=== PATIENT | male | born 1950 | race Caucasian/White ===

== ENCOUNTER → 2019-05-27 13:16 | Outpatient (CLI) | payer MEDICARE, OTHER, SELFPAY ==
[2019-05-27 14:08] LABS: Add Manual Diff / Slide Review NO; Basophils Absolute Auto 100 /uL (0-100); Basophils Percent Auto 1.2 % (0-2); Eosinophils Absolute Auto 200 /uL (0-450); Eosinophils Percent Auto 1.9 % (2-4); Hematocrit 44.3 % (41-53); Hemoglobin 14.8 g/dL (13.5-17.5); Lymphocytes Absolute Auto 2500 /uL (1100-4500); Lymphocytes Percent Auto 26.6 % (25-40); Mean Corpuscular HGB Conc 33.5 % (30-36); Mean Corpuscular Hemoglobin 33.9 PG (26-34); Mean Corpuscular Volume 101.2 fL (80-100); Monocytes Absolute Auto 1100 /uL (0-900); Monocytes Percent Auto 11.6 % (3-14); Neutrophils Absolute Auto 5400 /uL (1500-7000); Neutrophils Percent Auto 58.7 % (50-75); Platelet Count 185 X10^3/uL (150-400); Red Blood Cell Count 4.38 X10^6/uL (4.5-5.9); Red Cell Distribution Width 15.1 % (11.6-14.8); White Blood Cell Count 9.2 X10^3/uL (4.5-11.0)
[2019-05-27 14:31] LABS: Blood Urea Nitrogen 18 mg/dL (9-20); Carbon Dioxide 26 mmol/L (22-32); Chloride 103 mmol/L (98-107); Estimated Glomerular Filt Rate > 60.0 mL/min (>60); Glucose 79 mg/dL (80-110); HEMOLYSIS < 15 (0-50); Potassium 5.1 mmol/L (3.4-5.1); Sodium 140 mmol/L (137-145)
[2019-05-27 14:35] LABS: B Type Natriuretic Peptide 107 (<100)
== END ==
PROVIDERS: PCP Hospitalist; Visit Provider Hospitalist
DX: R06.02 Shortness of breath (principal)
CPT/HCPCS: 36415; 80048; 83880; 85025

== ENCOUNTER → 2019-06-03 13:05 | Outpatient (CLI) | payer MEDICARE, OTHER, SELFPAY ==
--- NOTE | 2019-06-03 13:26 | DI.CT.S_ITS ---
PROCEDURE: CT CHEST W CON INDICATIONS: Pulmonary Nodules ON PRIOR IMAGING FROM [facility] TECHNIQUE: After the administration of intravenous contrast, 5 mm thick sections acquired from the pulmonary apices to the posterior costophrenic angles. 1 mm axial lung, 5 mm thick coronal and sagittal reformats and 7 mm axial MIP were acquired. For radiation dose reduction, the following was used: automated exposure control, adjustment of mA and/or kV according to patient size. COMPARISON: None. FINDINGS: Image quality: Excellent. Lungs and pleura: There is a 6 mm subpleural nodule in the right upper lobe adjacent to the major fissure with associated pleural thickening (series 3 image 141). A 7 mm lingular nodule is noted (series 3 image 147). There is a right lower lobe scars and atelectasis. Mild centrilobular emphysema. No acute air space opacities. No pleural effusions or pneumothorax. Central and peripheral airways are patent and normal in caliber. Mediastinum: Heart size is normal. No pericardial effusion. Mild coronary atherosclerosis. No mediastinal or hilar adenopathy by size criteria. Thoracic aorta and central pulmonary arteries are normal in size. Esophagus is normal in caliber. Small hiatal hernia. Bones and chest wall: No suspicious bony lesions. No vertebral body compression fractures. No axillary or supraclavicular adenopathy by size criteria. There is a 7 mm hypodense nodule in the right thyroid lobe. Abdomen: Visualized upper abdominal solid organs appear normal. Upper abdominal bowel loops are normal in caliber. IMPRESSION: 1. There is a 6 mmnodul in the right upper lobe and a 7 mm in lingula. Comparison to outside prior studies, if available, would be helpful. Please see enclosed followup recommendation. 2. Mild emphysema. 3. A 7 mm right thyroid nodule. Recommend thyroid ultrasound for followup. Fleischner Society criteria for SOLID lung nodule followup. Nodule size (mm)Low-risk patientHigh-risk patient?4No follow-up neededFollow-up at 12 mo; if no change, no further follow-up>[id number] CT at 12 mo; if no change, no further follow-up needed.Initial follow-up CT at 6-12 mo, then 18-24 mo if no change. >6-8Initial follow-up CT at 6-12 mo, then 18-24 mo if no change. Initial follow-up CT at 3-6 mo, then 9-12 mo and 24 mo if no change. >8Follow-up CT at 3, 9, 24 mo. Or PET and/or biopsy.Same as for low-risk pts. Fleischner Society criteria for SUB-SOLID lung nodule followup. Solitary pure ground-glass nodules5 mm or lessNo followup needed. >5 mm3 mo follow-up CT to confirm persistence. Then annual CT for 3 years. Part-solid nodules3 mo follow-up CT to confirm persistence. If persistent with solid component <5 mm, annual CT for at least 3 years. If solid component is 5 mm or more, biopsy or surgical resection. Consider PET-CT for lesions > 10 mm. Multiple sub-solid nodulesPure ground glass nodules [address] at 2 and 4 years. Pure ground glass nodules >5 mm without dominant lesion. [address] to confirm persistence, then annual followup CT for at least 3 years. Dominant nodule(s) with part-solid or solid component. [address] to confirm persistence. If persistent, consider biopsy or surgical resection, samy if lesions have >5 mm solid component. Dictated by: Bryant Vilchis M.D. on 06/03/2019 at 15:31 Approved by: Bryant Vilchis M.D. on 06/03/2019 at 17:51
== END ==
PROVIDERS: PCP Hospitalist; Visit Provider Hospitalist
DX: R91.8 Other nonspecific abnormal finding of lung field (principal); J43.2 Centrilobular emphysema; E04.1 Nontoxic single thyroid nodule; I25.10 Atherosclerotic heart disease of native coronary artery without angina pectoris; K44.9 Diaphragmatic hernia without obstruction or gangrene
CPT/HCPCS: 71260; Q9967

== ENCOUNTER → 2019-07-02 13:57 | Outpatient (CLI) | payer MEDICARE, OTHER, SELFPAY ==
--- NOTE | 2019-07-02 13:59 | DI.US.S_ITS ---
PROCEDURE: US THYROID INDICATIONS: NODULE FOUND ON CAT SCAN TECHNIQUE: Real-time scanning was performed of the thyroid gland, with image documentation. COMPARISON: None. FINDINGS: Right: Thyroid lobe measures 4.0 x 2.1 x 2.2 cm, and is homogeneous in echotexture. Left: Thyroid lobe measures 4.9 x 1.7 x 1.4 cm, and is homogenous in echotexture. Isthmus: 3.0 mm thick. Nodule number: 1 Location: Right mid Size: 3.4 x 1.6 x 2.4 cm. Composition: No solid Echogenicity: Isoechoic Shape: wider than tall. Margins: Smooth Echogenic foci: Peripheral calcification Total points: 6 ACR TI-RADS category: Moderately suspicious Nodule number: 2 Location: Right mid posterior Size: 1.3 x 0.8 x 0.9 cm. Composition: Solid Echogenicity: Hypoechoic Shape: wider than tall. Margins: Smooth Echogenic foci: None Total points: 4 ACR TI-RADS category: Moderately suspicious Nodule number: 3 Location: Left mid Size: 0.4 x 0.3 x 0.4 cm. Composition: Predominately solid Echogenicity: Hypoechoic Shape: wider than tall. Margins: Smooth Echogenic foci: None Total points: 4 ACR TI-RADS category: Moderately suspicious IMPRESSION: Bilateral thyroid nodules. Recommend fine needle aspiration on the right # 1 nodule and continued followup ultrasound as detailed below. ACR TI-RADS definitions and recommendations: TI-RADS 1 (benign): 0 points. FNA not needed. TI-RADS 2 (not suspicious): 2 points. FNA not needed. TI-RADS 3 (mildly suspicious): 3 points. * FNA if 2.5 cm or larger, follow up if 1.5 cm or larger (at 1, 3, and 5 years). TI-RADS 4 (moderately suspicious): 4-6 points. * FNA if 1.5 cm or larger, follow up if 1 cm or larger (at 1, 2, 3, and 5 years). TI-RADS 5 (highly suspicious): 7 points or more. * FNA if 1 cm or larger, follow up if 0.5 cm or larger (every year for 5 years). Dictated by: Dany COLLADO Interpreted: Marie Vallejo MD on 07/02/2019 at 14:55 Approved by: Marie Vallejo M.D. on 07/02/2019 at 16:44
--- NOTE | 2019-07-02 13:59 | DI.RAD.S_ITS ---
PROCEDURE: XR SHOULDER RT MIN 2V INDICATIONS: right shoulder pain TECHNIQUE: 3 views of the shoulder were acquired. COMPARISON: None. FINDINGS: Bones: No fractures or dislocations. No suspicious bony lesions. Visualized ribs appear intact. Faint calcific tendinitis. Glenohumeral degeneration. Soft tissues: No suspicious soft tissue calcifications. IMPRESSION: Faint calcific tendinitis. Mild right shoulder joint degeneration. Dictated by: Manuel Abernathy M.D. on 07/02/2019 at 16:54 Approved by: Manuel Abernathy M.D. on 07/02/2019 at 16:55
== END ==
PROVIDERS: PCP Hospitalist; Visit Provider Hospitalist
DX: E04.2 Nontoxic multinodular goiter (principal); M25.511 Pain in right shoulder; M19.011 Primary osteoarthritis, right shoulder
CPT/HCPCS: 73030; 76536

== ENCOUNTER → 2019-07-13 11:32 | Outpatient (CLI) | payer MEDICARE, OTHER, SELFPAY ==
[2019-07-13 13:52] LABS: TSH w/ Reflex to FT4 0.98 uIU/mL (0.47-4.68)
== END ==
PROVIDERS: PCP Hospitalist; Visit Provider Hospitalist
DX: E04.1 Nontoxic single thyroid nodule (principal)
CPT/HCPCS: 36415; 84443